=== PATIENT | female | born 1955 | race Caucasian/White ===

== ENCOUNTER 2017-06-23 12:16 | Inpatient (IN) ==
[2017-06-23 13:03] LABS: Apearance,Urine CLEAR (Clear); Bilirubin,Urine Negative (Negative); Blood, Urine Moderate mg/dL (Negative); Glucose,Urine (UA) >=500 mg/dL (Negative); Ketones,Urine Negative (Negative); Mucus,Urine Occasional /LPF (Occasional); Nitrite,Urine Negative (Negative); Protein,Urine Negative; RBC,Urine 1 /HPF (0-4); Squamous Epithelial Cell,Urine Occasional /HPF (0-10); Urine Specific Gravity 1.018 (1.001-1.035); Urine Urobilinogen < 2.0 EU/DL (0.2-1.0); WBC,Urine 6 /HPF (0-6)
[2017-06-23 13:05] LABS: Urine Color Amber (Yellow)
[2017-06-23] MEDS ORDERED: SODIUM CHLORIDE 0.9% 1,000 ML IV STA (14:15)
[2017-06-23] MEDS ORDERED: KETOROLAC 30 MG/1 ML VIAL IV STA (14:15)
[2017-06-23] MEDS ORDERED: ONDANSETRON 4 MG/2 ML VIAL IV STA (14:15)
[2017-06-23] MEDS ORDERED: ONDANSETRON 4 MG/2 ML VIAL ONE (14:32)
[2017-06-23] MEDS ORDERED: KETOROLAC 30 MG/1 ML VIAL ONE (14:32)
[2017-06-23 14:46] LABS: Basophils # 0.1 10*3/uL (0.0-0.2); Basophils % 0.5 % (0.0-0.8); Eosinophils # 0.1 10*3/uL (0.0-0.87); Eosinophils % 0.3 % (0.00-10.9); Hematocrit 33.9 VOL% (35.7-47.0); Hemoglobin 12.1 GM/DL (12.0-16.0); Immature Granulocytes % 1.3 %; Immature Granulocytes Absolute 0.22 #; Lymphocytes # 1.3 10*3/uL (1.4-4.0); Lymphocytes % 7.5 % (21.3-54.2); Mean Corpuscular HGB Conc 35.7 GM/DL (32-36); Mean Corpuscular Hemoglobin 29 PG (27-34); Mean Corpuscular Volume 82.5 FL (87-102); Monocytes # 1.1 10*3/uL (0.11-0.8); Monocytes % 6.6 % (1.7-12.7); Neutrophils # 13.9 10*3/uL (1.4-7.4); Neutrophils % 83.8 % (38.7-73.9); Platelet Count 74 T/CUMM (130-400); Red Blood Count 4.11 MC/CUMM (3.8-5.5); Red Cell Distribution Width 12.9 % (9.3-17.3); White Blood Count 16.6 T/CUMM (4-12)
[2017-06-23 15:06] LABS: Albumin 2.4 G/DL (3.4-5.0); Bilirubin,Total 0.7 MG/DL (0.2-1.0); Calcium 8.8 MG/DL (8.5-10.1); Osmolality,Calculated 294.7 MOS/KG (273-304); Potassium 3.9 MMOL/L (3.5-5.1); Total Protein 6.7 G/DL (6.4-8.3)
[2017-06-23 15:12] LABS: Band Neutrophils 23 % (0-10); Lymphocytes 7 % (20-55); Segmented Neutrophils 66 % (50-85); Total Cells Counted 100
[2017-06-23] MEDS ORDERED: ACETAMINOPHEN 325 MG TABLET PO PRN ×2 (15:50)
[2017-06-23] MEDS ORDERED: GLUCAGON 1 MG VIAL IM PRN (15:56)
[2017-06-23] MEDS ORDERED: DEXTROSE 50% 25 GM/50 ML VIAL IV PRN (15:56)
[2017-06-23] MEDS ORDERED: PANTOPRAZOLE 40 MG TABLET PO SCH (16:00)
[2017-06-23] MEDS ORDERED: ONDANSETRON 4 MG/2 ML VIAL IV PRN (16:04)
[2017-06-23] MEDS ORDERED: INSULIN NPH 100 UNIT/ML SUBCUT SCH (16:30)
[2017-06-23 16:39] LABS: INR 1.1; PT Patient Result 11.7 SECS; Partial Thromboplastin Time 28.2 SECS (0-40)
[2017-06-23] MEDS: LACTATED RINGERS 1,000 ML IV SCH (18:47)
[2017-06-23] MEDS: INSULIN REGULAR 100 UNIT/ML SUBCUT SCH ×2 (20:06→21:59)
[2017-06-23] MEDS: CIPROFLOXACIN INJ 400 MG in PREMIX 1 EACH IV SCH (21:46)
[2017-06-23] MEDS: CITALOPRAM 20 MG TABLET PO SCH (21:46)
[2017-06-23] MEDS: PANTOPRAZOLE 40 MG TABLET PO SCH (21:46)
[2017-06-23] MEDS: ATORVASTATIN 40 MG TABLET PO SCH (21:46)
[2017-06-23] MEDS: ENOXAPARIN 40 MG/0.4 ML SYRINGE SUBCUT SCH (21:54)
[2017-06-23] MEDS: ZALEPLON 5 MG CAPSULE PO PRN (21:59)
[2017-06-24] MEDS: LACTATED RINGERS 1,000 ML IV SCH ×2 (04:30→15:50)
[2017-06-24 06:59] LABS: Calcium 7.5 MG/DL (8.5-10.1); Osmolality,Calculated 285.1 MOS/KG (273-304); Potassium 3.4 MMOL/L (3.5-5.1)
[2017-06-24] MEDS: INSULIN NPH 100 UNIT/ML SUBCUT SCH ×2 (07:43→18:22)
[2017-06-24] MEDS: INSULIN REGULAR 100 UNIT/ML SUBCUT SCH ×4 (07:44→20:59)
[2017-06-24] MEDS: PANTOPRAZOLE 40 MG TABLET PO SCH (07:59)
[2017-06-24] MEDS: CITALOPRAM 20 MG TABLET PO SCH ×2 (07:59→20:56)
[2017-06-24] MEDS: CIPROFLOXACIN INJ 400 MG in PREMIX 1 EACH IV SCH ×2 (07:59→20:56)
[2017-06-24] MEDS: BENZONATATE 100 MG CAPSULE PO SCH ×3 (13:22→21:03)
[2017-06-24] MEDS: ZALEPLON 5 MG CAPSULE PO PRN (20:56)
[2017-06-24] MEDS: ENOXAPARIN 40 MG/0.4 ML SYRINGE SUBCUT SCH (20:56)
[2017-06-24] MEDS: ATORVASTATIN 40 MG TABLET PO SCH (20:56)
[2017-06-25 02:32] LABS: Basophils # 0.1 10*3/uL (0.0-0.2); Basophils % 0.5 % (0.0-0.8); Eosinophils # 0.1 10*3/uL (0.0-0.87); Eosinophils % 0.7 % (0.00-10.9); Hematocrit 30.7 VOL% (35.7-47.0); Hemoglobin 10.8 GM/DL (12.0-16.0); Immature Granulocytes % 2.7 %; Immature Granulocytes Absolute 0.28 #; Lymphocytes % 9.3 % (21.3-54.2); Mean Corpuscular HGB Conc 35.2 GM/DL (32-36); Mean Corpuscular Hemoglobin 29 PG (27-34); Mean Platelet Volume 11.6 FL (9.6-12.0); Monocytes # 1.4 10*3/uL (0.11-0.8); Monocytes % 13.9 % (1.7-12.7); NRBC # 0.02 10*3/uL; Neutrophils # 7.6 10*3/uL (1.4-7.4); Neutrophils % 72.9 % (38.7-73.9); White Blood Count 10.4 T/CUMM (4-12)
[2017-06-25 02:38] LABS: Platelet Count 71 T/CUMM (130-400)
[2017-06-25 03:22] LABS: Calcium 7.8 MG/DL (8.5-10.1); Osmolality,Calculated 290.7 MOS/KG (273-304); Potassium 3.2 MMOL/L (3.5-5.1)
[2017-06-25 04:14] LABS: Eosinophils 3 % (0-10); Lymphocytes 8 % (20-55); Metamyelocytes 1 %; Myelocytes 1 %; Nucleated Red Blood Cells 1 (0-5); Segmented Neutrophils 69 % (50-85)
[2017-06-25 04:15] LABS: Hypochromasia 1+; Platelet Estimate Decreased
[2017-06-25 04:16] LABS: Total Cells Counted 100
[2017-06-25 04:17] LABS: Polychromasia Few
[2017-06-25] MEDS: LACTATED RINGERS 1,000 ML IV SCH ×2 (06:32→17:08)
[2017-06-25] MEDS ORDERED: MAGNESIUM HYDROXIDE SUSP 30 ML UDCUP PO PRN (07:47)
[2017-06-25] MEDS: CITALOPRAM 20 MG TABLET PO SCH ×2 (08:42→20:59)
[2017-06-25] MEDS: POTASSIUM CHLORIDE 20 MEQ TABLET PO SCH ×4 (08:42→20:57)
[2017-06-25] MEDS: BENZONATATE 100 MG CAPSULE PO SCH ×3 (08:43→20:59)
[2017-06-25] MEDS: PANTOPRAZOLE 40 MG TABLET PO SCH (08:43)
[2017-06-25] MEDS: CIPROFLOXACIN INJ 400 MG in PREMIX 1 EACH IV SCH ×2 (08:43→20:59)
[2017-06-25] MEDS: INSULIN NPH 100 UNIT/ML SUBCUT SCH ×2 (08:43→16:46)
[2017-06-25] MEDS: INSULIN REGULAR 100 UNIT/ML SUBCUT SCH ×4 (08:43→21:26)
[2017-06-25] MEDS: ZALEPLON 5 MG CAPSULE PO PRN (20:59)
[2017-06-25] MEDS: ATORVASTATIN 40 MG TABLET PO SCH (20:59)
[2017-06-25] MEDS: ENOXAPARIN 40 MG/0.4 ML SYRINGE SUBCUT SCH (21:00)
[2017-06-26 06:02] LABS: Calcium 8.3 MG/DL (8.5-10.1); Magnesium 1.8 MG/DL (1.8-2.4); Osmolality,Calculated 280.5 MOS/KG (273-304); Potassium 4.5 MMOL/L (3.5-5.1)
[2017-06-26] MEDS: INSULIN REGULAR 100 UNIT/ML SUBCUT SCH ×4 (08:27→20:59)
[2017-06-26] MEDS: LACTATED RINGERS 1,000 ML IV SCH (08:34)
[2017-06-26] MEDS: PANTOPRAZOLE 40 MG TABLET PO SCH (09:07)
[2017-06-26] MEDS: BENZONATATE 100 MG CAPSULE PO SCH ×4 (09:07→20:58)
[2017-06-26] MEDS: CITALOPRAM 20 MG TABLET PO SCH ×2 (09:07→20:58)
[2017-06-26] MEDS: CIPROFLOXACIN 500 MG TABLET PO SCH ×2 (09:07→20:58)
[2017-06-26] MEDS: INSULIN NPH 100 UNIT/ML SUBCUT SCH ×2 (09:07→15:40)
[2017-06-26] MEDS: ENOXAPARIN 40 MG/0.4 ML SYRINGE SUBCUT SCH (20:58)
[2017-06-26] MEDS: ATORVASTATIN 40 MG TABLET PO SCH (20:58)
[2017-06-26] MEDS: ZALEPLON 5 MG CAPSULE PO PRN (20:58)
[2017-06-27] MEDS: BENZONATATE 100 MG CAPSULE PO SCH ×2 (11:54→15:01)
[2017-06-27] MEDS: CITALOPRAM 20 MG TABLET PO SCH ×2 (11:54→20:58)
[2017-06-27] MEDS: CIPROFLOXACIN 500 MG TABLET PO SCH ×2 (11:55→20:59)
[2017-06-27] MEDS: PANTOPRAZOLE 40 MG TABLET PO SCH (11:55)
[2017-06-27] MEDS: INSULIN REGULAR 100 UNIT/ML SUBCUT SCH ×4 (13:22→20:59)
[2017-06-27] MEDS: INSULIN NPH 100 UNIT/ML SUBCUT SCH ×2 (13:25→18:12)
[2017-06-27 17:54] LABS: INR 1.1; PT Patient Result 11.8 SECS; Partial Thromboplastin Time 27.5 SECS (0-40)
[2017-06-27] MEDS: DILTIAZEM CD 120 MG CAPSULE PO SCH (18:13)
[2017-06-27] MEDS: ATORVASTATIN 40 MG TABLET PO SCH (20:59)
[2017-06-28 06:02] LABS: Basophils # 0.1 10*3/uL (0.0-0.2); Basophils % 0.5 % (0.0-0.8); Eosinophils # 0.2 10*3/uL (0.0-0.87); Eosinophils % 1.1 % (0.00-10.9); Hematocrit 37.1 VOL% (35.7-47.0); Hemoglobin 12.5 GM/DL (12.0-16.0); Immature Granulocytes % 1.4 %; Immature Granulocytes Absolute 0.24 #; Lymphocytes # 1.4 10*3/uL (1.4-4.0); Lymphocytes % 7.9 % (21.3-54.2); Mean Corpuscular HGB Conc 33.7 GM/DL (32-36); Mean Corpuscular Hemoglobin 29 PG (27-34); Mean Corpuscular Volume 85.7 FL (87-102); Mean Platelet Volume 10.4 FL (9.6-12.0); Monocytes # 1.1 10*3/uL (0.11-0.8); Monocytes % 6.1 % (1.7-12.7); Neutrophils # 14.4 10*3/uL (1.4-7.4); Platelet Count 268 T/CUMM (130-400); Red Blood Count 4.33 MC/CUMM (3.8-5.5); White Blood Count 17.4 T/CUMM (4-12)
[2017-06-28 06:34] LABS: Osmolality,Calculated 280.7 MOS/KG (273-304); Potassium 4.7 MMOL/L (3.5-5.1)
[2017-06-28] MEDS: CITALOPRAM 20 MG TABLET PO SCH (09:37)
[2017-06-28] MEDS: DILTIAZEM CD 120 MG CAPSULE PO SCH (09:37)
[2017-06-28] MEDS: CIPROFLOXACIN 500 MG TABLET PO SCH (09:38)
[2017-06-28] MEDS: PANTOPRAZOLE 40 MG TABLET PO SCH (09:38)
[2017-06-28] MEDS: INSULIN NPH 100 UNIT/ML SUBCUT SCH (09:40)
[2017-06-28] MEDS: INSULIN REGULAR 100 UNIT/ML SUBCUT SCH (09:41)
[2017-06-28 11:19] VITALS: BP 118/69
== END 2017-06-28 12:30 | disposition home or self-care (01) | DRG 690 ==
LOC: N.ED 12:16 → N.EDINP 15:50 → SUATTDRO 15:50 → N.2E 18:00
PROVIDERS: ADMIT Internal Medicine Cardiovascular Disease; ATTEND Internal Medicine

== ENCOUNTER 2019-11-27 21:41 | Inpatient (IN) ==
[2019-11-27] MEDS ORDERED: methylPREDNISolone SOD SUC 125 MG/2 ML VIAL IV STA (22:17)
[2019-11-27] MEDS ORDERED: ONDANSETRON 4 MG/2 ML VIAL IV STA (22:17)
[2019-11-27] MEDS ORDERED: KETOROLAC 30 MG/1 ML VIAL IV STA (22:20)
[2019-11-27] MEDS ORDERED: ORPHENADRINE 60 MG/2 ML VIAL IV STA (22:20)
[2019-11-27] MEDS ORDERED: ALBUTEROL NEB SOLN 5 MG/ML 20 ML/BOTTLE CONT NEB SCH (22:30)
[2019-11-27 22:39] LABS: Basophils # 0.1 10*3/uL (0.0-0.2); Basophils % 0.2 % (0.0-0.8); Hematocrit 42.9 VOL% (35.7-47.0); Hemoglobin 14.1 GM/DL (12.0-16.0); Immature Granulocytes % 1.5 %; Immature Granulocytes Absolute 0.36 #; Lymphocytes # 1.5 10*3/uL (1.4-4.0); Lymphocytes % 6.3 % (21.3-54.2); Mean Corpuscular HGB Conc 32.9 GM/DL (32-36); Mean Corpuscular Volume 97.3 FL (87-102); Mean Platelet Volume 11.7 FL (9.6-12.0); Monocytes % 7.9 % (1.7-12.7); Neutrophils % 84.1 % (38.7-73.9); Platelet Count 198 T/CUMM (130-400); Red Blood Count 4.41 MC/CUMM (3.8-5.5); Red Cell Distribution Width 12.7 % (9.3-17.3)
[2019-11-27 22:46] LABS: Alanine Aminotransferase 43 U/L (13-56); Albumin 2.7 G/DL (3.4-5.0); Alkaline Phosphatase 74 U/L (45-117); Aspartate Amino Transferase 49 U/L (0-37); Blood Urea Nitrogen 19 MG/DL (7-18); Calcium 8.6 MG/DL (8.5-10.1); Estimated Glom Filtration Rate 53 ML/MIN; Glucose 426 MG/DL (74-106); Osmolality,Calculated 294.7 MOS/KG (273-304); Total Protein 6.7 G/DL (6.4-8.3); Troponin I 0.185 NG/ML (0.00-0.045)
[2019-11-27 22:55] LABS: INR 1.1; PT Patient Result 11.7 SECS (9.6-12.2); Partial Thromboplastin Time 22.2 SECS (20.8-36.0)
[2019-11-27] MEDS ORDERED: cefTRIAXone 1,000 MG in SODIUM CHLORIDE 0.9% 100 ML IV STA (22:56)
[2019-11-27] MEDS ORDERED: INSULIN REGULAR 100 UNIT/ML SUBCUT STA (23:03)
[2019-11-27] MEDS ORDERED: ZALEPLON 5 MG CAPSULE PO PRN (23:09)
[2019-11-27] MEDS ORDERED: DEXTROSE 50% 25 GM/50 ML SYRINGE IV PRN (23:09)
[2019-11-27] MEDS ORDERED: ONDANSETRON 4 MG/2 ML VIAL IV PRN (23:09)
[2019-11-27] MEDS ORDERED: DOCUSATE SODIUM 100 MG CAPSULE PO PRN (23:09)
[2019-11-27] MEDS ORDERED: GLUCAGON 1 MG VIAL IM PRN (23:09)
[2019-11-27] MEDS ORDERED: SIMETHICONE CHEW 125 MG TABLET PO PRN (23:09)
[2019-11-27] MEDS ORDERED: ALBUTEROL 2.5 MG/3 ML NEB RESP TX PRN (23:09)
[2019-11-27 23:24] LABS: Apearance,Urine CLEAR (Clear); Bilirubin,Urine Negative (Negative); Blood, Urine Negative (Negative); Glucose,Urine (UA) >=500 mg/dL (Negative); Hyaline Casts,Urine 1 /LPF (0-3); Ketones,Urine 5 mg/dL (Negative); Mucus,Urine Occasional /LPF (Occasional); Nitrite,Urine Negative (Negative); Protein,Urine Negative; RBC,Urine 1 /HPF (0-4); Urine Color Yellow (Yellow); Urine Specific Gravity 1.028 (1.001-1.035); Urine Urobilinogen < 2.0 EU/DL (0.2-1.0); WBC,Urine 1 /HPF (0-6)
[2019-11-27 23:30] LABS: Barbiturates Screen,Urine Negative (Negative); Benzodiazepines Screen,Urine Negative (Negative); Cannabinoid Screen,Urine Negative (Negative); Opiate Screen,Urine Negative (Negative); Phencyclidine Screen,Urine Negative (Negative)
[2019-11-28 00:27] LABS: Band Neutrophils 4 % (0-10); Lymphocytes 8 % (20-55); Segmented Neutrophils 83 % (50-85); Total Cells Counted 100
[2019-11-28 00:28] LABS: Platelet Estimate Normal
[2019-11-28] MEDS ORDERED: ALBUTEROL 2.5 MG/3 ML NEB RESP TX PRN (01:00)
[2019-11-28] MEDS: LEVALBUTEROL 1.25 MG/3 ML NEB RESP TX SCH ×4 (01:47→19:08)
[2019-11-28 03:19] LABS: Basophils % 0.1 % (0.0-0.8); Hematocrit 39.4 VOL% (35.7-47.0); Hemoglobin 13.2 GM/DL (12.0-16.0); Immature Granulocytes % 0.5 %; Immature Granulocytes Absolute 0.08 #; Lymphocytes # 0.6 10*3/uL (1.4-4.0); Mean Corpuscular HGB Conc 33.5 GM/DL (32-36); Mean Corpuscular Volume 95.2 FL (87-102); Mean Platelet Volume 10.8 FL (9.6-12.0); Monocytes % 4.3 % (1.7-12.7); Neutrophils % 91.1 % (38.7-73.9); Platelet Count 140 T/CUMM (130-400); Red Blood Count 4.14 MC/CUMM (3.8-5.5); Red Cell Distribution Width 12.9 % (9.3-17.3)
[2019-11-28 03:37] LABS: Albumin 2.6 G/DL (3.4-5.0); Bilirubin,Total 0.6 MG/DL (0.2-1.0); Calcium 8.4 MG/DL (8.5-10.1); Osmolality,Calculated 292.1 MOS/KG (273-304); Total Protein 6.2 G/DL (6.4-8.3)
[2019-11-28] MEDS: INSULIN REGULAR 100 UNIT/ML SUBCUT SCH ×5 (06:32→21:23)
[2019-11-28] MEDS: ENOXAPARIN 40 MG/0.4 ML SYRINGE SUBCUT SCH (06:37)
[2019-11-28] MEDS: PIPERACILLIN/TAZOBACTAM 3,375 MG in SODIUM CHLORIDE 0.9% 100 ML IV SCH ×3 (06:38→21:23)
[2019-11-28] MEDS: methylPREDNISolone SOD SUC 40 MG/1 ML VIAL IV SCH ×3 (06:38→21:23)
[2019-11-28] MEDS: PANTOPRAZOLE 40 MG TABLET PO SCH (08:22)
[2019-11-28] MEDS: DILTIAZEM CD 120 MG CAPSULE PO SCH (09:27)
[2019-11-28] MEDS: carvediloL 3.125 MG TABLET PO SCH ×2 (09:27→17:03)
[2019-11-28] MEDS ORDERED: POTASSIUM CHLORIDE RIDER 10 MEQ in PREMIX 1 EACH IV PRN (10:59)
[2019-11-28] MEDS ORDERED: FLUTICASONE 50 MCG NASAL SPRAY 16 GM BOTTLE BOTH NARES PRN (11:10)
[2019-11-28] MEDS ORDERED: BENZONATATE 100 MG CAPSULE PO PRN (11:18)
[2019-11-28] MEDS: INSULIN NPH/REGULAR 70/30 100 UNIT/ML SUBCUT SCH (17:02)
[2019-11-28] MEDS ORDERED: NINTEDANIB 100 MG PO SCH (21:00)
[2019-11-28] MEDS ORDERED: SULFAMETHOX/TRIMETHOPRIM 800-160 MG TABLET PO SCH (21:00)
[2019-11-28] MEDS: ATORVASTATIN 40 MG TABLET PO SCH (21:24)
[2019-11-29] MEDS: LEVALBUTEROL 1.25 MG/3 ML NEB RESP TX SCH ×4 (01:32→19:45)
[2019-11-29 04:52] LABS: Basophils % 0.1 % (0.0-0.8); Hematocrit 34.7 VOL% (35.7-47.0); Hemoglobin 11.8 GM/DL (12.0-16.0); Immature Granulocytes % 0.4 %; Immature Granulocytes Absolute 0.07 #; Lymphocytes # 0.4 10*3/uL (1.4-4.0); Lymphocytes % 2.5 % (21.3-54.2); Mean Platelet Volume 11.7 FL (9.6-12.0); Monocytes % 4.7 % (1.7-12.7); Neutrophils % 92.3 % (38.7-73.9); Platelet Count 127 T/CUMM (130-400); Red Blood Count 3.69 MC/CUMM (3.8-5.5); Red Cell Distribution Width 12.9 % (9.3-17.3); White Blood Count 15.8 T/CUMM (4-12)
[2019-11-29 05:17] LABS: Calcium 8.1 MG/DL (8.5-10.1); Osmolality,Calculated 295.3 MOS/KG (273-304)
[2019-11-29 05:21] LABS: Hypochromasia 1+; Lymphocytes 4 % (20-55); Platelet Estimate Normal; Segmented Neutrophils 93 % (50-85); Total Cells Counted 100
[2019-11-29] MEDS: methylPREDNISolone SOD SUC 40 MG/1 ML VIAL IV SCH (05:59)
[2019-11-29] MEDS: ENOXAPARIN 40 MG/0.4 ML SYRINGE SUBCUT SCH (05:59)
[2019-11-29] MEDS: PIPERACILLIN/TAZOBACTAM 3,375 MG in SODIUM CHLORIDE 0.9% 100 ML IV SCH ×2 (05:59→15:10)
[2019-11-29] MEDS: INSULIN REGULAR 100 UNIT/ML SUBCUT SCH ×4 (08:34→23:54)
[2019-11-29] MEDS: INSULIN NPH/REGULAR 70/30 100 UNIT/ML SUBCUT SCH ×2 (08:34→15:59)
[2019-11-29] MEDS: carvediloL 3.125 MG TABLET PO SCH ×2 (08:35→15:59)
[2019-11-29] MEDS: DILTIAZEM CD 120 MG CAPSULE PO SCH (08:35)
[2019-11-29] MEDS: CITALOPRAM 20 MG TABLET PO SCH (08:35)
[2019-11-29] MEDS: PANTOPRAZOLE 40 MG TABLET PO SCH (08:35)
[2019-11-29] MEDS: ACETAMINOPHEN 325 MG TABLET PO PRN ×2 (09:30→20:57)
[2019-11-29] MEDS: POTASSIUM CHLORIDE 20 MEQ TABLET PO PRN ×3 (09:31→15:59)
[2019-11-29] MEDS: CLORAZEPATE 3.75 MG TABLET PO SCH ×2 (10:15→20:57)
[2019-11-29] MEDS ORDERED: methylPREDNISolone SOD SUC 40 MG/1 ML VIAL IV SCH (18:00)
[2019-11-29] MEDS: methylPREDNISolone 4 MG TABLET PO SCH (20:57)
[2019-11-29] MEDS: ATORVASTATIN 40 MG TABLET PO SCH (20:58)
[2019-11-30] MEDS: PIPERACILLIN/TAZOBACTAM 3,375 MG in SODIUM CHLORIDE 0.9% 100 ML IV SCH ×3 (00:21→14:44)
[2019-11-30] MEDS: ACETAMINOPHEN 325 MG TABLET PO PRN ×3 (01:01→20:56)
[2019-11-30] MEDS: LEVALBUTEROL 1.25 MG/3 ML NEB RESP TX SCH ×4 (01:03→20:20)
[2019-11-30] MEDS: ENOXAPARIN 40 MG/0.4 ML SYRINGE SUBCUT SCH (05:26)
[2019-11-30 05:28] LABS: Basophils % 0.1 % (0.0-0.8); Hematocrit 33.8 VOL% (35.7-47.0); Hemoglobin 11.2 GM/DL (12.0-16.0); Immature Granulocytes % 0.6 %; Immature Granulocytes Absolute 0.09 #; Lymphocytes # 0.6 10*3/uL (1.4-4.0); Lymphocytes % 3.8 % (21.3-54.2); Mean Corpuscular HGB Conc 33.1 GM/DL (32-36); Mean Corpuscular Volume 96.8 FL (87-102); Mean Platelet Volume 12.2 FL (9.6-12.0); Monocytes % 7.7 % (1.7-12.7); Neutrophils % 87.8 % (38.7-73.9); Platelet Count 127 T/CUMM (130-400); Red Blood Count 3.49 MC/CUMM (3.8-5.5); Red Cell Distribution Width 13.1 % (9.3-17.3); White Blood Count 14.8 T/CUMM (4-12)
[2019-11-30 05:55] LABS: Calcium 7.9 MG/DL (8.5-10.1); Osmolality,Calculated 297.3 MOS/KG (273-304)
[2019-11-30 06:00] LABS: Band Neutrophils 2 % (0-10); Hypochromasia 1+; Lymphocytes 3 % (20-55); Platelet Estimate Adequate; Segmented Neutrophils 90 % (50-85); Total Cells Counted 100
[2019-11-30] MEDS: DILTIAZEM CD 120 MG CAPSULE PO SCH (09:24)
[2019-11-30] MEDS: INSULIN REGULAR 100 UNIT/ML SUBCUT SCH ×4 (09:25→20:34)
[2019-11-30] MEDS: CITALOPRAM 20 MG TABLET PO SCH (09:25)
[2019-11-30] MEDS: PANTOPRAZOLE 40 MG TABLET PO SCH (09:25)
[2019-11-30] MEDS: CLORAZEPATE 3.75 MG TABLET PO SCH ×2 (09:25→20:35)
[2019-11-30] MEDS: methylPREDNISolone 4 MG TABLET PO SCH ×2 (09:25→20:35)
[2019-11-30] MEDS: carvediloL 3.125 MG TABLET PO SCH ×2 (09:25→16:08)
[2019-11-30] MEDS: INSULIN NPH/REGULAR 70/30 100 UNIT/ML SUBCUT SCH ×2 (09:25→16:08)
[2019-11-30] MEDS: LOPERAMIDE 2 MG CAPSULE PO PRN (09:28)
[2019-11-30] MEDS: ATORVASTATIN 40 MG TABLET PO SCH (20:35)
[2019-12-01] MEDS: PIPERACILLIN/TAZOBACTAM 3,375 MG in SODIUM CHLORIDE 0.9% 100 ML IV SCH ×2 (00:22→05:33)
[2019-12-01] MEDS: LEVALBUTEROL 1.25 MG/3 ML NEB RESP TX SCH ×3 (01:50→13:08)
[2019-12-01 04:12] LABS: Basophils % 0.1 % (0.0-0.8); Eosinophils % 0.1 % (0.00-10.9); Hematocrit 36.4 VOL% (35.7-47.0); Hemoglobin 11.7 GM/DL (12.0-16.0); Immature Granulocytes % 0.6 %; Immature Granulocytes Absolute 0.07 #; Lymphocytes # 0.9 10*3/uL (1.4-4.0); Lymphocytes % 7.4 % (21.3-54.2); Mean Corpuscular HGB Conc 32.1 GM/DL (32-36); Mean Corpuscular Volume 99.5 FL (87-102); Mean Platelet Volume 11.4 FL (9.6-12.0); Monocytes % 6.5 % (1.7-12.7); Neutrophils % 85.3 % (38.7-73.9); Platelet Count 136 T/CUMM (130-400); Red Blood Count 3.66 MC/CUMM (3.8-5.5); Red Cell Distribution Width 13.1 % (9.3-17.3); White Blood Count 11.4 T/CUMM (4-12)
[2019-12-01 04:36] LABS: Calcium 7.9 MG/DL (8.5-10.1); Osmolality,Calculated 283.3 MOS/KG (273-304)
[2019-12-01] MEDS: ENOXAPARIN 40 MG/0.4 ML SYRINGE SUBCUT SCH (05:34)
[2019-12-01] MEDS: PANTOPRAZOLE 40 MG TABLET PO SCH (09:24)
[2019-12-01] MEDS: carvediloL 3.125 MG TABLET PO SCH (09:24)
[2019-12-01] MEDS: CLORAZEPATE 3.75 MG TABLET PO SCH (09:24)
[2019-12-01] MEDS: methylPREDNISolone 4 MG TABLET PO SCH (09:24)
[2019-12-01] MEDS: LOPERAMIDE 2 MG CAPSULE PO PRN (09:24)
[2019-12-01] MEDS: CITALOPRAM 20 MG TABLET PO SCH (09:24)
[2019-12-01] MEDS: DILTIAZEM CD 120 MG CAPSULE PO SCH (09:24)
[2019-12-01] MEDS: INSULIN NPH/REGULAR 70/30 100 UNIT/ML SUBCUT SCH (09:25)
[2019-12-01] MEDS: INSULIN REGULAR 100 UNIT/ML SUBCUT SCH ×2 (09:25→13:13)
[2019-12-01] MEDS: ACETAMINOPHEN 325 MG TABLET PO PRN (09:33)
[2019-12-01 11:49] VITALS: BP 116/82
== END 2019-12-01 15:07 | disposition home health service (06) | DRG 196 ==
LOC: EDBD → EDUNIT# → N.ED 21:41 → N.EDINP 23:09 → SUATTDRO 23:09 → N.ICU 23:35 → N.3E 11-29 16:47
PROVIDERS: ADMIT Internal Medicine; ATTEND Family Medicine

== ENCOUNTER 2019-12-17 12:00 | Observation (INO) ==
[2019-12-17] MEDS ORDERED: ONDANSETRON 4 MG/2 ML VIAL IV STA (12:55)
[2019-12-17] MEDS ORDERED: HYDROmorphone 2 MG/1 ML VIAL IV STA (12:55)
[2019-12-17 13:49] LABS: Apearance,Urine Slightly Hazy (Clear); Bacteria,Urine Occasional /HPF (Few); Bilirubin,Urine Negative (Negative); Blood, Urine Negative (Negative); Glucose,Urine (UA) >=500 mg/dL (Negative); Hyaline Casts,Urine 1 /LPF (0-3); Ketones,Urine Negative (Negative); Mucus,Urine Occasional /LPF (Occasional); Nitrite,Urine Negative (Negative); Protein,Urine Negative; RBC,Urine 4 /HPF (0-4); Squamous Epithelial Cell,Urine Few /HPF (0-10); Urine Color Yellow (Yellow); Urine Specific Gravity 1.021 (1.001-1.035); Urine Urobilinogen < 2.0 EU/DL (0.2-1.0); WBC,Urine 49 /HPF (0-6)
[2019-12-17] MEDS ORDERED: cefTRIAXone 1,000 MG in SODIUM CHLORIDE 0.9% 100 ML IV STA (15:00)
[2019-12-17] MEDS ORDERED: FLUTICASONE 50 MCG NASAL SPRAY 16 GM BOTTLE BOTH NARES PRN (16:03)
[2019-12-17] MEDS ORDERED: BENZONATATE 100 MG CAPSULE PO PRN (16:03)
[2019-12-17] MEDS ORDERED: LOPERAMIDE 2 MG CAPSULE PO PRN (16:03)
[2019-12-17] MEDS ORDERED: DEXTROSE 50% 25 GM/50 ML VIAL IV PRN ×2 (16:06)
[2019-12-17] MEDS ORDERED: CALCIUM CARBONATE CHEW 500 MG TABLET PO PRN (16:06)
[2019-12-17] MEDS ORDERED: LACTULOSE 20 GM/30 ML UDCUP PO PRN (16:06)
[2019-12-17] MEDS ORDERED: GLUCAGON 1 MG VIAL IM PRN (16:06)
[2019-12-17] MEDS ORDERED: ALUMINUM/MAGNES/SIMETH MAX STR 30 ML UDCUP PO PRN (16:06)
[2019-12-17] MEDS ORDERED: DOCUSATE SODIUM 100 MG CAPSULE PO PRN (16:06)
[2019-12-17] MEDS ORDERED: SIMETHICONE CHEW 125 MG TABLET PO PRN (16:06)
[2019-12-17] MEDS ORDERED: BISACODYL 5 MG TABLET PO PRN (16:06)
[2019-12-17 18:39] LABS: Basophils % 0.1 % (0.0-0.8); Hematocrit 41.5 VOL% (35.7-47.0); Hemoglobin 13.2 GM/DL (12.0-16.0); Immature Granulocytes % 0.4 %; Immature Granulocytes Absolute 0.06 #; Lymphocytes # 1.8 10*3/uL (1.4-4.0); Lymphocytes % 12.6 % (21.3-54.2); Mean Corpuscular HGB Conc 31.8 GM/DL (32-36); Mean Corpuscular Volume 99.8 FL (87-102); Mean Platelet Volume 10.1 FL (9.6-12.0); Monocytes % 6.1 % (1.7-12.7); Neutrophils % 80.8 % (38.7-73.9); Platelet Count 279 T/CUMM (130-400); Red Blood Count 4.16 MC/CUMM (3.8-5.5); Red Cell Distribution Width 13.4 % (9.3-17.3)
[2019-12-17 19:05] LABS: Albumin 2.8 G/DL (3.4-5.0); Bilirubin,Total 0.5 MG/DL (0.2-1.0); Calcium 8.9 MG/DL (8.5-10.1); Osmolality,Calculated 281.7 MOS/KG (273-304); Total Protein 7.1 G/DL (6.4-8.3)
[2019-12-17] MEDS ORDERED: NINTEDANIB 100 MG PO SCH (21:00)
[2019-12-17] MEDS: INSULIN REGULAR 100 UNIT/ML SUBCUT SCH (21:09)
[2019-12-17] MEDS: CLINDAMYCIN 150 MG CAPSULE PO SCH (21:09)
[2019-12-17] MEDS: cephALEXin 250 MG CAPSULE PO SCH (21:09)
[2019-12-17] MEDS: INSULIN NPH/REGULAR 70/30 100 UNIT/ML SUBCUT SCH (21:10)
[2019-12-18] MEDS: cephALEXin 250 MG CAPSULE PO SCH ×5 (00:17→20:27)
[2019-12-18] MEDS: methylPREDNISolone 4 MG TABLET PO SCH ×3 (00:18→20:28)
[2019-12-18] MEDS: CLINDAMYCIN 150 MG CAPSULE PO SCH ×4 (00:18→20:28)
[2019-12-18] MEDS: ATORVASTATIN 40 MG TABLET PO SCH ×2 (00:18→20:27)
[2019-12-18] MEDS: carvediloL 6.25 MG TABLET PO SCH ×3 (00:18→20:28)
[2019-12-18] MEDS: INSULIN REGULAR 100 UNIT/ML SUBCUT SCH ×5 (00:22→20:27)
[2019-12-18] MEDS: MORPHINE 4 MG/1 ML VIAL IV PRN ×2 (02:31→08:04)
[2019-12-18 06:36] LABS: Basophils % 0.3 % (0.0-0.8); Eosinophils % 0.2 % (0.00-10.9); Hematocrit 40.5 VOL% (35.7-47.0); Hemoglobin 13.2 GM/DL (12.0-16.0); Immature Granulocytes % 0.4 %; Immature Granulocytes Absolute 0.05 #; Lymphocytes # 0.9 10*3/uL (1.4-4.0); Lymphocytes % 7.8 % (21.3-54.2); Mean Corpuscular HGB Conc 32.6 GM/DL (32-36); Mean Corpuscular Volume 97.1 FL (87-102); Mean Platelet Volume 11.4 FL (9.6-12.0); Monocytes % 4.4 % (1.7-12.7); Neutrophils % 86.9 % (38.7-73.9); Platelet Count 200 T/CUMM (130-400); Red Blood Count 4.17 MC/CUMM (3.8-5.5); Red Cell Distribution Width 13.4 % (9.3-17.3); White Blood Count 11.8 T/CUMM (4-12)
[2019-12-18 06:58] LABS: Albumin 2.5 G/DL (3.4-5.0); Bilirubin,Total 0.7 MG/DL (0.2-1.0); Calcium 8.8 MG/DL (8.5-10.1); Osmolality,Calculated 276.8 MOS/KG (273-304); Total Protein 6.8 G/DL (6.4-8.3)
[2019-12-18] MEDS: ONDANSETRON 4 MG TABLET PO PRN (08:08)
[2019-12-18] MEDS: CITALOPRAM 20 MG TABLET PO SCH (08:55)
[2019-12-18] MEDS: INSULIN NPH/REGULAR 70/30 100 UNIT/ML SUBCUT SCH ×2 (08:56→17:13)
[2019-12-18] MEDS: PANTOPRAZOLE 40 MG TABLET PO SCH (08:56)
[2019-12-18] MEDS: DILTIAZEM CD 120 MG CAPSULE PO SCH (08:56)
[2019-12-18 10:20] LABS: Apearance,Urine CLEAR (Clear); Bilirubin,Urine Negative (Negative); Blood, Urine Negative (Negative); Glucose,Urine (UA) >=500 mg/dL (Negative); Hyaline Casts,Urine 1 /LPF (0-3); Ketones,Urine Negative (Negative); Mucus,Urine Occasional /LPF (Occasional); Nitrite,Urine Negative (Negative); Protein,Urine Negative; RBC,Urine 1 /HPF (0-4); Squamous Epithelial Cell,Urine Occasional /HPF (0-10); Urine Color Yellow (Yellow); Urine Specific Gravity 1.014 (1.001-1.035); Urine Urobilinogen < 2.0 EU/DL (0.2-1.0); WBC,Urine 1 /HPF (0-6)
[2019-12-18] MEDS: oxyCODONE/ACETAMINOPHEN 5-325 MG TABLET PO PRN (12:55)
[2019-12-18] MEDS: GABAPENTIN 100 MG CAPSULE PO SCH ×2 (14:40→20:28)
[2019-12-18] MEDS ORDERED: ZOLPIDEM 5 MG TABLET PO PRN (15:57)
[2019-12-19 06:14] LABS: Basophils % 0.2 % (0.0-0.8); Eosinophils % 0.1 % (0.00-10.9); Hematocrit 38.5 VOL% (35.7-47.0); Hemoglobin 12.5 GM/DL (12.0-16.0); Immature Granulocytes % 0.4 %; Immature Granulocytes Absolute 0.04 #; Lymphocytes # 1.6 10*3/uL (1.4-4.0); Lymphocytes % 16.1 % (21.3-54.2); Mean Corpuscular HGB Conc 32.5 GM/DL (32-36); Mean Corpuscular Volume 98.2 FL (87-102); Mean Platelet Volume 10.8 FL (9.6-12.0); Monocytes % 8.1 % (1.7-12.7); Neutrophils % 75.1 % (38.7-73.9); Platelet Count 263 T/CUMM (130-400); Red Blood Count 3.92 MC/CUMM (3.8-5.5); Red Cell Distribution Width 13.2 % (9.3-17.3); White Blood Count 9.8 T/CUMM (4-12)
[2019-12-19 06:39] LABS: Albumin 2.6 G/DL (3.4-5.0); Bilirubin,Total 0.7 MG/DL (0.2-1.0); Calcium 8.9 MG/DL (8.5-10.1); Osmolality,Calculated 280.5 MOS/KG (273-304); Total Protein 6.5 G/DL (6.4-8.3)
[2019-12-19] MEDS: INSULIN REGULAR 100 UNIT/ML SUBCUT SCH ×2 (07:30→12:14)
[2019-12-19] MEDS: INSULIN NPH/REGULAR 70/30 100 UNIT/ML SUBCUT SCH (09:10)
[2019-12-19] MEDS: ONDANSETRON 4 MG TABLET PO PRN (09:10)
[2019-12-19] MEDS: DILTIAZEM CD 120 MG CAPSULE PO SCH (09:49)
[2019-12-19] MEDS: methylPREDNISolone 4 MG TABLET PO SCH (09:49)
[2019-12-19] MEDS: CITALOPRAM 20 MG TABLET PO SCH (09:49)
[2019-12-19] MEDS: carvediloL 6.25 MG TABLET PO SCH (09:49)
[2019-12-19] MEDS: PANTOPRAZOLE 40 MG TABLET PO SCH (09:49)
[2019-12-19] MEDS: GABAPENTIN 100 MG CAPSULE PO SCH (09:49)
[2019-12-19] MEDS: cephALEXin 250 MG CAPSULE PO SCH ×2 (09:49→13:12)
[2019-12-19] MEDS: CLINDAMYCIN 150 MG CAPSULE PO SCH (09:49)
[2019-12-19] MEDS: oxyCODONE/ACETAMINOPHEN 5-325 MG TABLET PO PRN (11:32)
[2019-12-19 11:43] VITALS: BP 111/65
== END 2019-12-19 13:11 | disposition home or self-care (01) ==
LOC: N.ED 12:00 → N.EDINP 12:00 → SUATTDRO 16:06 → N.3E 17:10
PROVIDERS: ADMIT Internal Medicine; ATTEND Internal Medicine

== ENCOUNTER 2020-01-14 06:49 | Inpatient (IN) ==
[2020-01-14] MEDS ORDERED: MORPHINE 4 MG/1 ML VIAL IV STA (07:07)
[2020-01-14] MEDS ORDERED: ONDANSETRON 4 MG/2 ML VIAL IV STA (07:07)
[2020-01-14] MEDS ORDERED: PIPERACILLIN/TAZOBACTAM 3,375 MG in SODIUM CHLORIDE 0.9% 100 ML IV STA (07:20)
[2020-01-14] MEDS ORDERED: FUROSEMIDE 40 MG/4 ML VIAL IV STA (07:20)
[2020-01-14 07:28] LABS: ABG Base Excess -7.7 MMOL/L (-2.5-2.5); ABG HCO3 17.4 MMOL/L (20-26); ABG Oxygen Saturation 49.1 % (95-100); ABG PCO2 34.2 MM HG (35-48); ABG PH 7.325 (7.35-7.45); ABG TCO2 18.5 MMOL/L (23-27)
[2020-01-14] MEDS ORDERED: ETOMIDATE 20 MG/10 ML VIAL IV ONE (07:29)
[2020-01-14] MEDS ORDERED: methylPREDNISolone SOD SUC 125 MG/2 ML VIAL IV STA (07:30)
[2020-01-14] MEDS ORDERED: ETOMIDATE 20 MG/10 ML VIAL IV STA (07:30)
[2020-01-14] MEDS ORDERED: SUCCINYLCHOLINE 200 MG/10 ML VIAL ONE (07:30)
[2020-01-14] MEDS ORDERED: SUCCINYLCHOLINE 200 MG/10 ML VIAL IV ONE (07:31)
[2020-01-14 07:32] LABS: ABG PO2 29.3 MM HG (80-95)
[2020-01-14 07:55] LABS: Basophils % 0.2 % (0.0-0.8); Hemoglobin 12.2 GM/DL (12.0-16.0); Immature Granulocytes % 0.6 %; Immature Granulocytes Absolute 0.09 #; Lymphocytes # 0.9 10*3/uL (1.4-4.0); Lymphocytes % 6.1 % (21.3-54.2); Mean Corpuscular HGB Conc 32.1 GM/DL (32-36); Mean Corpuscular Volume 101.9 FL (87-102); Mean Platelet Volume 10.9 FL (9.6-12.0); Monocytes % 5.7 % (1.7-12.7); Neutrophils % 87.4 % (38.7-73.9); Platelet Count 181 T/CUMM (130-400); Red Blood Count 3.73 MC/CUMM (3.8-5.5); Red Cell Distribution Width 13.7 % (9.3-17.3); White Blood Count 15.2 T/CUMM (4-12)
[2020-01-14 08:15] LABS: Albumin 2.4 G/DL (3.4-5.0); Bilirubin,Total 0.8 MG/DL (0.2-1.0); Calcium 8.3 MG/DL (8.5-10.1); Osmolality,Calculated 299.8 MOS/KG (273-304)
[2020-01-14] MEDS ORDERED: SODIUM CHLORIDE 0.9% 1,000 ML IV STA (08:17)
[2020-01-14] MEDS ORDERED: ALBUTEROL 2.5 MG/3 ML NEB RESP TX PRN (08:46)
[2020-01-14] MEDS ORDERED: ONDANSETRON 4 MG/2 ML VIAL IV PRN (08:46)
[2020-01-14 08:55] LABS: ABG Base Excess -2.6 MMOL/L (-2.5-2.5); ABG HCO3 22.3 MMOL/L (20-26); ABG Oxygen Saturation 99.8 % (95-100); ABG PCO2 40.2 MM HG (35-48); ABG PH 7.358 (7.35-7.45); ABG TCO2 20.4 MMOL/L (23-27)
[2020-01-14] MEDS: PANTOPRAZOLE 40 MG VIAL IV SCH (10:21)
[2020-01-14] MEDS: ENOXAPARIN 30 MG/0.3 ML SYRINGE SUBCUT SCH (10:24)
[2020-01-14] MEDS ORDERED: VANCOMYCIN INJ 500 MG in SODIUM CHLORIDE 0.9% 100 ML IV PRN (11:00)
[2020-01-14 11:04] LABS: Ferritin 1102.5 ng/ml (8-252)
[2020-01-14] MEDS ORDERED: HEPARIN/NACL 0.9% 2 UNITS/ML 500 ML IV ONE (12:01)
[2020-01-14] MEDS ORDERED: VANCOMYCIN INJ 750 MG in SODIUM CHLORIDE 0.9% 250 ML IV ONE (13:00)
[2020-01-14] MEDS ORDERED: NOREPINEPHRINE 4 MG/4 ML VIAL IV ONE (13:03)
[2020-01-14] MEDS: NOREPINEPHRINE 8 MG in SODIUM CHLORIDE 0.9% 242 ML IV PRN (13:05)
[2020-01-14] MEDS ORDERED: SODIUM CHLORIDE 0.9% 1,000 ML IV ONE (13:24)
[2020-01-14 15:13] LABS: Apearance,Urine CLOUDY (Clear); Bilirubin,Urine Negative (Negative); Blood, Urine Negative (Negative); Glucose,Urine (UA) >=500 mg/dL (Negative); Ketones,Urine Negative (Negative); Mucus,Urine Occasional /LPF (Occasional); Nitrite,Urine Negative (Negative); Protein,Urine 30 MG/DL; RBC,Urine 226 /HPF (0-4); Urine Color Yellow (Yellow); Urine Specific Gravity 1.012 (1.001-1.035); Urine Urobilinogen < 2.0 EU/DL (0.2-1.0)
[2020-01-14] MEDS: INSULIN NPH/REGULAR 70/30 100 UNIT/ML SUBCUT SCH (17:00)
[2020-01-14] MEDS: INSULIN LISPRO 100 UNIT/ML SUBCUT SCH ×2 (17:00→21:18)
[2020-01-14] MEDS ORDERED: INSULIN LISPRO 100 UNIT/ML SUBCUT SCH (18:00)
[2020-01-14] MEDS: HYDROXYCHLOROQUINE 200 MG TABLET PO SCH (21:18)
[2020-01-14] MEDS: PIPERACILLIN/TAZOBACTAM 3,375 MG in SODIUM CHLORIDE 0.9% 100 ML IV SCH (22:38)
[2020-01-15] MEDS: NOREPINEPHRINE 8 MG in SODIUM CHLORIDE 0.9% 242 ML IV PRN (01:12)
[2020-01-15] MEDS: INSULIN LISPRO 100 UNIT/ML SUBCUT SCH ×6 (01:12→21:03)
[2020-01-15 04:49] LABS: ABG Base Excess -5.6 MMOL/L (-2.5-2.5); ABG HCO3 19.9 MMOL/L (20-26); ABG Oxygen Saturation 99.8 % (95-100); ABG PCO2 49.8 MM HG (35-48); ABG PH 7.261 (7.35-7.45)
[2020-01-15 05:12] LABS: Basophils % 0.1 % (0.0-0.8); Hematocrit 31.9 VOL% (35.7-47.0); Hemoglobin 10.2 GM/DL (12.0-16.0); Immature Granulocytes % 0.5 %; Immature Granulocytes Absolute 0.05 #; Lymphocytes # 0.3 10*3/uL (1.4-4.0); Lymphocytes % 2.8 % (21.3-54.2); Mean Corpuscular Volume 99.7 FL (87-102); Mean Platelet Volume 10.7 FL (9.6-12.0); Neutrophils % 92.6 % (38.7-73.9); Platelet Count 137 T/CUMM (130-400); Red Cell Distribution Width 13.5 % (9.3-17.3); White Blood Count 10.6 T/CUMM (4-12)
[2020-01-15 05:38] LABS: Band Neutrophils 8 % (0-10); Lymphocytes 2 % (20-55); Metamyelocytes 1 %; Segmented Neutrophils 85 % (50-85); Total Cells Counted 100
[2020-01-15 05:39] LABS: Hypochromasia Slight; Macrocytosis Slight; Polychromasia Slight
[2020-01-15 05:40] LABS: Platelet Estimate Adequate
[2020-01-15 05:44] LABS: Albumin 2.1 G/DL (3.4-5.0); Bilirubin,Total 0.8 MG/DL (0.2-1.0); Calcium 7.7 MG/DL (8.5-10.1); Osmolality,Calculated 310.6 MOS/KG (273-304); Risk Ratio 2.51; Total Protein 5.7 G/DL (6.4-8.3); VLDL CHOLESTEROL 23.6 MG/DL
[2020-01-15] MEDS: PIPERACILLIN/TAZOBACTAM 3,375 MG in SODIUM CHLORIDE 0.9% 100 ML IV SCH ×2 (08:35→21:17)
[2020-01-15] MEDS: INSULIN NPH/REGULAR 70/30 100 UNIT/ML SUBCUT SCH ×2 (08:40→16:50)
[2020-01-15] MEDS: HYDROXYCHLOROQUINE 200 MG TABLET PO SCH ×2 (08:40→21:03)
[2020-01-15] MEDS: ENOXAPARIN 30 MG/0.3 ML SYRINGE SUBCUT SCH (08:40)
[2020-01-15] MEDS: PANTOPRAZOLE 40 MG VIAL IV SCH (09:47)
[2020-01-15] MEDS ORDERED: VANCOMYCIN INJ 500 MG in SODIUM CHLORIDE 0.9% 100 ML IV ONE (10:00)
[2020-01-15 10:27] LABS: ABG Base Excess -4.6 MMOL/L (-2.5-2.5); ABG HCO3 20.6 MMOL/L (20-26); ABG Oxygen Saturation 99.5 % (95-100); ABG PCO2 45.5 MM HG (35-48); ABG PH 7.291 (7.35-7.45); ABG TCO2 20.1 MMOL/L (23-27)
[2020-01-16] MEDS: INSULIN LISPRO 100 UNIT/ML SUBCUT SCH ×4 (00:40→20:12)
[2020-01-16 05:03] LABS: Basophils % 0.2 % (0.0-0.8); Hematocrit 32.1 VOL% (35.7-47.0); Hemoglobin 10.4 GM/DL (12.0-16.0); Immature Granulocytes % 0.7 %; Immature Granulocytes Absolute 0.09 #; Lymphocytes # 0.3 10*3/uL (1.4-4.0); Lymphocytes % 2.1 % (21.3-54.2); Mean Corpuscular HGB Conc 32.4 GM/DL (32-36); Mean Corpuscular Volume 98.8 FL (87-102); Mean Platelet Volume 11.1 FL (9.6-12.0); Monocytes % 3.6 % (1.7-12.7); Neutrophils % 93.4 % (38.7-73.9); Platelet Count 134 T/CUMM (130-400); Red Blood Count 3.25 MC/CUMM (3.8-5.5); White Blood Count 13.2 T/CUMM (4-12)
[2020-01-16 05:12] LABS: ABG Base Excess -3.7 MMOL/L (-2.5-2.5); ABG HCO3 21.4 MMOL/L (20-26); ABG PCO2 44.2 MM HG (35-48); ABG PH 7.316 (7.35-7.45); ABG TCO2 19.9 MMOL/L (23-27)
[2020-01-16 05:24] LABS: Band Neutrophils 2 % (0-10); Lymphocytes 4 % (20-55); Segmented Neutrophils 90 % (50-85); Total Cells Counted 100
[2020-01-16 05:25] LABS: Hypochromasia 1+; Microcytosis Slight; Ovalocytes Slight
[2020-01-16] MEDS: PANTOPRAZOLE 40 MG VIAL IV SCH (10:30)
[2020-01-16] MEDS: ENOXAPARIN 30 MG/0.3 ML SYRINGE SUBCUT SCH (10:30)
[2020-01-16] MEDS: HYDROXYCHLOROQUINE 200 MG TABLET PO SCH ×2 (10:30→21:01)
[2020-01-16] MEDS: ZINC SULFATE 220 MG CAPSULE PO SCH (10:30)
[2020-01-16] MEDS: INSULIN NPH/REGULAR 70/30 100 UNIT/ML SUBCUT SCH ×3 (11:00→18:00)
[2020-01-16] MEDS: PIPERACILLIN/TAZOBACTAM 3,375 MG in SODIUM CHLORIDE 0.9% 100 ML IV SCH ×2 (14:30→21:01)
[2020-01-16] MEDS ORDERED: SODIUM CHLORIDE 0.9% 1,000 ML IV PRN (15:20)
[2020-01-16] MEDS ORDERED: DIGOXIN 0.5 MG/2 ML AMP IV ONE ×2 (18:45→19:45)
[2020-01-16] MEDS ORDERED: ACETAMINOPHEN 325 MG TABLET PO PRN (20:01)
[2020-01-16] MEDS: MIDAZOLAM 100 MG in SODIUM CHLORIDE 0.9% 80 ML IV PRN (22:50)
[2020-01-17] MEDS: INSULIN LISPRO 100 UNIT/ML SUBCUT SCH ×6 (00:49→20:26)
[2020-01-17] MEDS: NOREPINEPHRINE 8 MG in SODIUM CHLORIDE 0.9% 242 ML IV PRN (02:02)
[2020-01-17 04:46] LABS: ABG Base Excess -3.1 MMOL/L (-2.5-2.5); ABG HCO3 24.3 MMOL/L (20-26); ABG Oxygen Saturation 94.3 % (95-100); ABG PCO2 54.4 MM HG (35-48); ABG PH 7.267 (7.35-7.45); ABG PO2 81.9 MM HG (80-95); ABG TCO2 25.9 MMOL/L (23-27)
[2020-01-17 05:07] LABS: Basophils % 0.1 % (0.0-0.8); Eosinophils % 0.1 % (0.00-10.9); Hematocrit 33.1 VOL% (35.7-47.0); Hemoglobin 10.4 GM/DL (12.0-16.0); Immature Granulocytes Absolute 0.14 #; Lymphocytes # 0.8 10*3/uL (1.4-4.0); Lymphocytes % 5.6 % (21.3-54.2); Mean Corpuscular HGB Conc 31.4 GM/DL (32-36); Mean Corpuscular Volume 102.5 FL (87-102); Mean Platelet Volume 11.2 FL (9.6-12.0); Monocytes % 1.9 % (1.7-12.7); Neutrophils % 91.3 % (38.7-73.9); Platelet Count 116 T/CUMM (130-400); Red Blood Count 3.23 MC/CUMM (3.8-5.5); Red Cell Distribution Width 14.3 % (9.3-17.3); White Blood Count 13.4 T/CUMM (4-12)
[2020-01-17 05:31] LABS: Calcium 7.8 MG/DL (8.5-10.1); Osmolality,Calculated 312.3 MOS/KG (273-304)
[2020-01-17 05:34] LABS: Band Neutrophils 5 % (0-10); Hypochromasia 1+; Lymphocytes 4 % (20-55); Microcytosis Slight; Segmented Neutrophils 89 % (50-85); Total Cells Counted 100
[2020-01-17] MEDS: INSULIN NPH/REGULAR 70/30 100 UNIT/ML SUBCUT SCH ×2 (08:36→17:42)
[2020-01-17] MEDS: HYDROXYCHLOROQUINE 200 MG TABLET PO SCH ×2 (08:38→20:26)
[2020-01-17] MEDS: ENOXAPARIN 40 MG/0.4 ML SYRINGE SUBCUT SCH (08:38)
[2020-01-17] MEDS: PIPERACILLIN/TAZOBACTAM 3,375 MG in SODIUM CHLORIDE 0.9% 100 ML IV SCH ×2 (08:38→21:20)
[2020-01-17] MEDS: PANTOPRAZOLE 40 MG VIAL IV SCH (08:38)
[2020-01-17] MEDS ORDERED: GLUCAGON 1 MG VIAL IM PRN (08:49)
[2020-01-17 12:11] LABS: ABG Base Excess -2.4 MMOL/L (-2.5-2.5); ABG Oxygen Saturation 98.4 % (95-100); ABG PCO2 48.5 MM HG (35-48); ABG PH 7.312 (7.35-7.45); ABG PO2 147.1 MM HG (80-95); ABG TCO2 25.5 MMOL/L (23-27); Glucose Heart Surgery 186 MG/DL (74-106); Hemoglobin Heart Surgery 10.6 G/DL (12.0-16.0); Potassium Heart/CVR 3.6 MMOL/L (3.5-5.1)
[2020-01-17] MEDS ORDERED: MORPHINE 4 MG/1 ML VIAL IV ONE (17:06)
[2020-01-17] MEDS: MORPHINE 4 MG/1 ML VIAL IV PRN (17:43)
[2020-01-17] MEDS: MIDAZOLAM 100 MG in SODIUM CHLORIDE 0.9% 80 ML IV PRN (17:43)
[2020-01-17] MEDS: DEXTROSE 10% 250 ML BAG IV PRN (20:32)
[2020-01-18] MEDS: INSULIN LISPRO 100 UNIT/ML SUBCUT SCH ×5 (00:05→18:37)
[2020-01-18 04:57] LABS: ABG Base Excess -3.9 MMOL/L (-2.5-2.5); ABG HCO3 21.2 MMOL/L (20-26); ABG Oxygen Saturation 98.6 % (95-100); ABG PCO2 51.6 MM HG (35-48); ABG PH 7.266 (7.35-7.45); ABG TCO2 21.7 MMOL/L (23-27)
[2020-01-18 05:22] LABS: Basophils % 0.2 % (0.0-0.8); Eosinophils % 0.2 % (0.00-10.9); Hematocrit 31.8 VOL% (35.7-47.0); Immature Granulocytes % 0.7 %; Immature Granulocytes Absolute 0.09 #; Lymphocytes # 0.6 10*3/uL (1.4-4.0); Lymphocytes % 4.7 % (21.3-54.2); Mean Corpuscular HGB Conc 31.4 GM/DL (32-36); Mean Corpuscular Volume 101.3 FL (87-102); Mean Platelet Volume 11.7 FL (9.6-12.0); Monocytes % 2.9 % (1.7-12.7); Neutrophils % 91.3 % (38.7-73.9); Red Blood Count 3.14 MC/CUMM (3.8-5.5); Red Cell Distribution Width 14.3 % (9.3-17.3); White Blood Count 12.3 T/CUMM (4-12)
[2020-01-18 05:23] LABS: Platelet Count 91 T/CUMM (130-400)
[2020-01-18 05:37] LABS: Calcium 8.2 MG/DL (8.5-10.1); Osmolality,Calculated 305.4 MOS/KG (273-304)
[2020-01-18 05:50] LABS: Band Neutrophils 6 % (0-10); Hypochromasia Slight; Lymphocytes 2 % (20-55); Platelet Estimate Decreased; Segmented Neutrophils 91 % (50-85); Total Cells Counted 100
[2020-01-18 05:51] LABS: Microcytosis Slight
[2020-01-18] MEDS: ENOXAPARIN 40 MG/0.4 ML SYRINGE SUBCUT SCH (08:23)
[2020-01-18] MEDS: PANTOPRAZOLE 40 MG VIAL IV SCH (08:24)
[2020-01-18] MEDS: HYDROXYCHLOROQUINE 200 MG TABLET PO SCH ×2 (08:24→20:37)
[2020-01-18] MEDS: ZINC SULFATE 220 MG CAPSULE PO SCH (08:24)
[2020-01-18] MEDS: PIPERACILLIN/TAZOBACTAM 3,375 MG in SODIUM CHLORIDE 0.9% 100 ML IV SCH ×2 (08:30→20:37)
[2020-01-18] MEDS: NOREPINEPHRINE 8 MG in SODIUM CHLORIDE 0.9% 242 ML IV PRN (08:44)
[2020-01-18] MEDS: INSULIN NPH/REGULAR 70/30 100 UNIT/ML SUBCUT SCH ×2 (11:33→18:36)
[2020-01-18] MEDS: MORPHINE 4 MG/1 ML VIAL IV PRN ×2 (14:26→23:55)
[2020-01-18] MEDS: MIDAZOLAM 100 MG in SODIUM CHLORIDE 0.9% 80 ML IV PRN (18:43)
[2020-01-19] MEDS: INSULIN LISPRO 100 UNIT/ML SUBCUT SCH ×4 (00:05→17:52)
[2020-01-19 04:33] LABS: Basophils % 0.2 % (0.0-0.8); Eosinophils % 0.3 % (0.00-10.9); Hematocrit 28.9 VOL% (35.7-47.0); Hemoglobin 9.1 GM/DL (12.0-16.0); Immature Granulocytes % 1.4 %; Immature Granulocytes Absolute 0.13 #; Lymphocytes # 0.4 10*3/uL (1.4-4.0); Lymphocytes % 4.6 % (21.3-54.2); Mean Corpuscular HGB Conc 31.5 GM/DL (32-36); Mean Corpuscular Volume 100.7 FL (87-102); Mean Platelet Volume 11.7 FL (9.6-12.0); Monocytes % 4.1 % (1.7-12.7); Neutrophils % 89.4 % (38.7-73.9); Red Blood Count 2.87 MC/CUMM (3.8-5.5); Red Cell Distribution Width 14.4 % (9.3-17.3); White Blood Count 9.6 T/CUMM (4-12)
[2020-01-19 04:38] LABS: Platelet Count 87 T/CUMM (130-400)
[2020-01-19 04:48] LABS: ABG Base Excess -2.6 MMOL/L (-2.5-2.5); ABG HCO3 24.7 MMOL/L (20-26); ABG Oxygen Saturation 93.5 % (95-100); ABG PCO2 55.2 MM HG (35-48); ABG PH 7.268 (7.35-7.45); ABG PO2 74.3 MM HG (80-95); ABG TCO2 26.4 MMOL/L (23-27)
[2020-01-19 04:54] LABS: Band Neutrophils 6 % (0-10); Lymphocytes 3 % (20-55); Promyelocytes 1 %; Segmented Neutrophils 86 % (50-85); Total Cells Counted 100
[2020-01-19 04:55] LABS: Hypochromasia Slight; Microcytosis Slight; Platelet Estimate Decreased; Polychromasia Slight
[2020-01-19 05:07] LABS: Calcium 8.1 MG/DL (8.5-10.1); Osmolality,Calculated 309.3 MOS/KG (273-304)
[2020-01-19] MEDS: ENOXAPARIN 40 MG/0.4 ML SYRINGE SUBCUT SCH (08:24)
[2020-01-19] MEDS: HYDROXYCHLOROQUINE 200 MG TABLET PO SCH (08:24)
[2020-01-19] MEDS: PIPERACILLIN/TAZOBACTAM 3,375 MG in SODIUM CHLORIDE 0.9% 100 ML IV SCH ×2 (08:24→21:26)
[2020-01-19] MEDS: PANTOPRAZOLE 40 MG VIAL IV SCH (08:26)
[2020-01-19] MEDS: INSULIN NPH/REGULAR 70/30 100 UNIT/ML SUBCUT SCH ×2 (08:30→17:51)
[2020-01-19] MEDS: ENOXAPARIN 30 MG/0.3 ML SYRINGE SUBCUT SCH (12:21)
[2020-01-19] MEDS: methylPREDNISolone SOD SUC 40 MG/1 ML VIAL IV SCH ×2 (12:22→17:51)
[2020-01-19] MEDS: NOREPINEPHRINE 8 MG in SODIUM CHLORIDE 0.9% 242 ML IV PRN (16:01)
[2020-01-19] MEDS: MIDAZOLAM 100 MG in SODIUM CHLORIDE 0.9% 80 ML IV PRN (17:54)
[2020-01-19] MEDS: MORPHINE 4 MG/1 ML VIAL IV PRN (23:15)
[2020-01-20] MEDS: methylPREDNISolone SOD SUC 40 MG/1 ML VIAL IV SCH ×3 (01:50→17:02)
[2020-01-20] MEDS: INSULIN LISPRO 100 UNIT/ML SUBCUT SCH ×4 (02:57→18:08)
[2020-01-20 04:12] LABS: ABG Base Excess -8.4 MMOL/L (-2.5-2.5); ABG HCO3 17.6 MMOL/L (20-26); ABG Oxygen Saturation 98.8 % (95-100); ABG PCO2 54.5 MM HG (35-48); ABG TCO2 19.1 MMOL/L (23-27)
[2020-01-20 04:14] LABS: ABG PH 7.179 (7.35-7.45)
[2020-01-20 04:41] LABS: Basophils % 0.3 % (0.0-0.8); Hematocrit 30.4 VOL% (35.7-47.0); Hemoglobin 9.5 GM/DL (12.0-16.0); Immature Granulocytes % 0.7 %; Immature Granulocytes Absolute 0.02 #; Lymphocytes # 0.2 10*3/uL (1.4-4.0); Lymphocytes % 5.4 % (21.3-54.2); Mean Corpuscular HGB Conc 31.3 GM/DL (32-36); Mean Corpuscular Volume 102.7 FL (87-102); Mean Platelet Volume 12.8 FL (9.6-12.0); Monocytes % 2.7 % (1.7-12.7); Neutrophils % 90.9 % (38.7-73.9); Red Blood Count 2.96 MC/CUMM (3.8-5.5); Red Cell Distribution Width 14.6 % (9.3-17.3)
[2020-01-20 04:46] LABS: Platelet Count 77 T/CUMM (130-400)
[2020-01-20 04:53] LABS: Calcium 8.2 MG/DL (8.5-10.1); Osmolality,Calculated 318.3 MOS/KG (273-304)
[2020-01-20] MEDS ORDERED: SODIUM BICARBONATE 50 MEQ/50 ML VIAL IV ONE (05:30)
[2020-01-20 05:35] LABS: Band Neutrophils 1 % (0-10); Lymphocytes 5 % (20-55); Metamyelocytes 1 %; Platelet Estimate Decreased; Reactive Lymphocytes Few; Segmented Neutrophils 91 % (50-85); Total Cells Counted 100
[2020-01-20] MEDS: SODIUM BICARB INJ 50 MEQ in DEXTROSE 5% 1,000 ML IV SCH ×3 (05:52→18:30)
[2020-01-20] MEDS: INSULIN NPH/REGULAR 70/30 100 UNIT/ML SUBCUT SCH ×2 (07:51→17:01)
[2020-01-20] MEDS: PANTOPRAZOLE 40 MG VIAL IV SCH (08:04)
[2020-01-20] MEDS: ENOXAPARIN 30 MG/0.3 ML SYRINGE SUBCUT SCH (08:04)
[2020-01-20] MEDS: ZINC SULFATE 220 MG CAPSULE PO SCH (08:23)
[2020-01-20] MEDS: PIPERACILLIN/TAZOBACTAM 3,375 MG in SODIUM CHLORIDE 0.9% 100 ML IV SCH ×2 (08:24→20:55)
[2020-01-20] MEDS: MORPHINE 4 MG/1 ML VIAL IV PRN (16:58)
[2020-01-20] MEDS ORDERED: ATROPINE 1 MG/10 ML SYRINGE ONE (21:02)
[2020-01-21] MEDS: methylPREDNISolone SOD SUC 40 MG/1 ML VIAL IV SCH ×3 (00:31→17:15)
[2020-01-21] MEDS: INSULIN LISPRO 100 UNIT/ML SUBCUT SCH ×4 (00:31→18:13)
[2020-01-21] MEDS: SODIUM BICARB INJ 50 MEQ in DEXTROSE 5% 1,000 ML IV SCH (02:00)
[2020-01-21] MEDS: MORPHINE 4 MG/1 ML VIAL IV PRN (03:20)
[2020-01-21 03:51] LABS: Basophils % 0.3 % (0.0-0.8); Hematocrit 27.1 VOL% (35.7-47.0); Hemoglobin 8.7 GM/DL (12.0-16.0); Immature Granulocytes Absolute 0.04 #; Lymphocytes # 0.2 10*3/uL (1.4-4.0); Lymphocytes % 4.9 % (21.3-54.2); Mean Corpuscular HGB Conc 32.1 GM/DL (32-36); Mean Corpuscular Volume 99.3 FL (87-102); Monocytes % 4.4 % (1.7-12.7); NRBC # 0.02 10*3/uL; Neutrophils % 89.4 % (38.7-73.9); Red Blood Count 2.73 MC/CUMM (3.8-5.5); Red Cell Distribution Width 14.4 % (9.3-17.3); White Blood Count 3.9 T/CUMM (4-12)
[2020-01-21 04:01] LABS: ABG Base Excess -2.1 MMOL/L (-2.5-2.5); ABG HCO3 22.7 MMOL/L (20-26); ABG Oxygen Saturation 98.9 % (95-100); ABG PCO2 56.5 MM HG (35-48); ABG PH 7.262 (7.35-7.45)
[2020-01-21] MEDS: MIDAZOLAM 100 MG in SODIUM CHLORIDE 0.9% 80 ML IV PRN (04:08)
[2020-01-21 04:09] LABS: Platelet Count 77 T/CUMM (130-400)
[2020-01-21 04:20] LABS: Albumin 1.1 G/DL (3.4-5.0); Bilirubin,Total 0.8 MG/DL (0.2-1.0); Osmolality,Calculated 319.7 MOS/KG (273-304); Total Protein 4.9 G/DL (6.4-8.3)
[2020-01-21 04:32] LABS: Band Neutrophils 4 % (0-10); Lymphocytes 3 % (20-55); Metamyelocytes 2 %; Segmented Neutrophils 88 % (50-85); Total Cells Counted 100
[2020-01-21 04:33] LABS: Platelet Estimate Decreased
[2020-01-21 04:34] LABS: Burr Cells 1+; Hypochromasia 1+
[2020-01-21] MEDS: INSULIN NPH/REGULAR 70/30 100 UNIT/ML SUBCUT SCH ×2 (08:42→15:02)
[2020-01-21] MEDS: ENOXAPARIN 30 MG/0.3 ML SYRINGE SUBCUT SCH (08:43)
[2020-01-21] MEDS: PIPERACILLIN/TAZOBACTAM 3,375 MG in SODIUM CHLORIDE 0.9% 100 ML IV SCH (08:43)
[2020-01-21] MEDS: PANTOPRAZOLE 40 MG VIAL IV SCH (08:43)
[2020-01-21] MEDS ORDERED: POTASSIUM CHLORIDE RIDER 10 MEQ in PREMIX 1 EACH IV PRN (08:49)
[2020-01-21] MEDS: POTASSIUM CHLORIDE RIDER 20 MEQ in PREMIX 1 EACH IV PRN ×2 (09:00→11:00)
[2020-01-21] MEDS ORDERED: HEPARIN/NACL 0.9% 2 UNITS/ML 500 ML IV ONE (11:46)
[2020-01-21] MEDS: SODIUM CHLORIDE 23.4% CONC INJ 38.5 MEQ, SODIUM BICARB INJ 50 MEQ in STERILE WATER INJ ... IV SCH (12:16)
[2020-01-21] MEDS: DOPamine 800 MG/250 ML PREMIX IV PRN (12:19)
[2020-01-21] MEDS: ATORVASTATIN 40 MG TABLET PO SCH (22:53)
[2020-01-22] MEDS: methylPREDNISolone SOD SUC 40 MG/1 ML VIAL IV SCH ×3 (00:15→17:00)
[2020-01-22] MEDS: INSULIN LISPRO 100 UNIT/ML SUBCUT SCH ×4 (00:33→17:00)
[2020-01-22] MEDS: SODIUM CHLORIDE 23.4% CONC INJ 38.5 MEQ, SODIUM BICARB INJ 50 MEQ in STERILE WATER INJ ... IV SCH ×3 (00:33→21:17)
[2020-01-22 03:56] LABS: ABG Base Excess 1.1 MMOL/L (-2.5-2.5); ABG HCO3 25.4 MMOL/L (20-26); ABG PCO2 54.8 MM HG (35-48); ABG PH 7.317 (7.35-7.45); ABG PO2 81.5 MM HG (80-95); ABG TCO2 25.9 MMOL/L (23-27)
[2020-01-22 04:08] LABS: Basophils % 0.2 % (0.0-0.8); Hematocrit 30.7 VOL% (35.7-47.0); Hemoglobin 10.1 GM/DL (12.0-16.0); Immature Granulocytes % 1.3 %; Immature Granulocytes Absolute 0.11 #; Lymphocytes # 0.2 10*3/uL (1.4-4.0); Lymphocytes % 2.3 % (21.3-54.2); Mean Corpuscular HGB Conc 32.9 GM/DL (32-36); Mean Corpuscular Volume 96.8 FL (87-102); Mean Platelet Volume 12.4 FL (9.6-12.0); Monocytes % 4.3 % (1.7-12.7); NRBC # 0.08 10*3/uL; Neutrophils % 91.9 % (38.7-73.9); Red Blood Count 3.17 MC/CUMM (3.8-5.5); Red Cell Distribution Width 14.3 % (9.3-17.3); White Blood Count 8.3 T/CUMM (4-12)
[2020-01-22 04:16] LABS: Calcium 7.4 MG/DL (8.5-10.1)
[2020-01-22 04:20] LABS: Platelet Count 103 T/CUMM (130-400)
[2020-01-22 04:44] LABS: Band Neutrophils 1 % (0-10); Lymphocytes 2 % (20-55); Nucleated Red Blood Cells 1 (0-5); Platelet Estimate Decreased; Segmented Neutrophils 95 % (50-85); Total Cells Counted 100
[2020-01-22 04:45] LABS: Hypochromasia Slight; Microcytosis Slight; Ovalocytes Slight
[2020-01-22] MEDS: INSULIN NPH/REGULAR 70/30 100 UNIT/ML SUBCUT SCH ×2 (09:17→17:02)
[2020-01-22] MEDS: ENOXAPARIN 30 MG/0.3 ML SYRINGE SUBCUT SCH (09:25)
[2020-01-22] MEDS: PANTOPRAZOLE 40 MG VIAL IV SCH (09:26)
[2020-01-22] MEDS: MIDAZOLAM 100 MG in SODIUM CHLORIDE 0.9% 80 ML IV PRN (11:58)
[2020-01-22] MEDS: ATORVASTATIN 40 MG TABLET PO SCH (20:32)
[2020-01-23] MEDS: INSULIN LISPRO 100 UNIT/ML SUBCUT SCH ×4 (01:03→18:05)
[2020-01-23] MEDS: methylPREDNISolone SOD SUC 40 MG/1 ML VIAL IV SCH ×3 (01:38→16:30)
[2020-01-23 05:01] LABS: ABG Base Excess 4.9 MMOL/L (-2.5-2.5); ABG HCO3 30.3 MMOL/L (20-26); ABG Oxygen Saturation 96.7 % (95-100); ABG PCO2 48.3 MM HG (35-48); ABG PH 7.415 (7.35-7.45); ABG PO2 93.7 MM HG (80-95); ABG TCO2 31.8 MMOL/L (23-27)
[2020-01-23 05:12] LABS: Basophils # 0.1 10*3/uL (0.0-0.2); Basophils % 0.5 % (0.0-0.8); Hematocrit 30.8 VOL% (35.7-47.0); Hemoglobin 10.2 GM/DL (12.0-16.0); Immature Granulocytes % 1.7 %; Immature Granulocytes Absolute 0.23 #; Lymphocytes # 0.3 10*3/uL (1.4-4.0); Lymphocytes % 1.9 % (21.3-54.2); Mean Corpuscular HGB Conc 33.1 GM/DL (32-36); Mean Corpuscular Volume 93.3 FL (87-102); Mean Platelet Volume 13.2 FL (9.6-12.0); Monocytes % 3.3 % (1.7-12.7); NRBC # 0.12 10*3/uL; Neutrophils % 92.6 % (38.7-73.9); Platelet Count 107 T/CUMM (130-400); Red Cell Distribution Width 14.4 % (9.3-17.3); White Blood Count 13.5 T/CUMM (4-12)
[2020-01-23 05:23] LABS: Calcium 6.8 MG/DL (8.5-10.1)
[2020-01-23 05:35] LABS: Band Neutrophils 1 % (0-10); Hypochromasia Slight; Lymphocytes 5 % (20-55); Microcytosis Slight; Nucleated Red Blood Cells 2 (0-5); Polychromasia Slight; Segmented Neutrophils 85 % (50-85); Total Cells Counted 100
[2020-01-23 05:36] LABS: Platelet Estimate Decreased
[2020-01-23] MEDS: SODIUM CHLORIDE 23.4% CONC INJ 38.5 MEQ, SODIUM BICARB INJ 50 MEQ in STERILE WATER INJ ... IV SCH ×2 (08:14→18:07)
[2020-01-23] MEDS: METOCLOPRAMIDE 10 MG/10 ML UDCUP PO SCH ×3 (08:23→20:15)
[2020-01-23] MEDS: INSULIN NPH/REGULAR 70/30 100 UNIT/ML SUBCUT SCH ×2 (08:23→18:05)
[2020-01-23] MEDS: ENOXAPARIN 30 MG/0.3 ML SYRINGE SUBCUT SCH (08:23)
[2020-01-23] MEDS: PANTOPRAZOLE 40 MG VIAL IV SCH (08:25)
[2020-01-23] MEDS: MORPHINE 4 MG/1 ML VIAL IV PRN (11:57)
[2020-01-23] MEDS: MIDAZOLAM 100 MG in SODIUM CHLORIDE 0.9% 80 ML IV PRN (15:04)
[2020-01-23] MEDS ORDERED: HEPARIN/NACL 0.9% 2 UNITS/ML 500 ML IV ONE (15:06)
[2020-01-23] MEDS: DOPamine 800 MG/250 ML PREMIX IV PRN (15:17)
[2020-01-23] MEDS: HEPARIN/NACL 0.9% 2 UNITS/ML 500 ML IV SCH (15:25)
[2020-01-23] MEDS: HYDROmorphone INJ 50 MG in SODIUM CHLORIDE 0.9% 45 ML IV SCH (16:29)
[2020-01-23] MEDS: MENTHOL/ZINC OXIDE OINT 71 GM JAR TOP SCH (16:36)
[2020-01-23] MEDS: ATORVASTATIN 40 MG TABLET PO SCH (21:35)
[2020-01-24] MEDS: INSULIN LISPRO 100 UNIT/ML SUBCUT SCH ×4 (00:14→17:23)
[2020-01-24] MEDS: methylPREDNISolone SOD SUC 40 MG/1 ML VIAL IV SCH ×3 (00:26→17:04)
[2020-01-24] MEDS: METOCLOPRAMIDE 10 MG/10 ML UDCUP PO SCH ×4 (02:43→20:34)
[2020-01-24 04:37] LABS: Basophils % 0.3 % (0.0-0.8); Eosinophils % 0.1 % (0.00-10.9); Hemoglobin 9.9 GM/DL (12.0-16.0); Immature Granulocytes % 1.9 %; Immature Granulocytes Absolute 0.28 #; Lymphocytes # 0.4 10*3/uL (1.4-4.0); Lymphocytes % 2.6 % (21.3-54.2); Mean Corpuscular HGB Conc 31.9 GM/DL (32-36); Mean Corpuscular Volume 98.7 FL (87-102); Mean Platelet Volume 13.3 FL (9.6-12.0); Monocytes % 3.5 % (1.7-12.7); NRBC # 0.06 10*3/uL; Neutrophils % 91.6 % (38.7-73.9); Red Blood Count 3.14 MC/CUMM (3.8-5.5); Red Cell Distribution Width 14.5 % (9.3-17.3); White Blood Count 14.5 T/CUMM (4-12)
[2020-01-24 04:38] LABS: Platelet Count 108 T/CUMM (130-400)
[2020-01-24] MEDS: SODIUM CHLORIDE 23.4% CONC INJ 38.5 MEQ, SODIUM BICARB INJ 50 MEQ in STERILE WATER INJ ... IV SCH ×2 (04:46→15:28)
[2020-01-24 04:47] LABS: Calcium 6.3 MG/DL (8.5-10.1); Osmolality,Calculated 302.3 MOS/KG (273-304)
[2020-01-24 05:11] LABS: Band Neutrophils 2 % (0-10); Hypochromasia 1+; Lymphocytes 3 % (20-55); Platelet Estimate Decreased; Segmented Neutrophils 93 % (50-85); Total Cells Counted 100
[2020-01-24 05:12] LABS: Microcytosis Slight
[2020-01-24] MEDS: INSULIN NPH/REGULAR 70/30 100 UNIT/ML SUBCUT SCH ×2 (08:36→17:23)
[2020-01-24] MEDS: PANTOPRAZOLE 40 MG VIAL IV SCH (08:36)
[2020-01-24] MEDS: ENOXAPARIN 30 MG/0.3 ML SYRINGE SUBCUT SCH (08:37)
[2020-01-24 09:52] LABS: ABG Base Excess 7.3 MMOL/L (-2.5-2.5); ABG HCO3 31.1 MMOL/L (20-26); ABG Oxygen Saturation 97.6 % (95-100); ABG PCO2 51.5 MM HG (35-48); ABG PH 7.416 (7.35-7.45); ABG PO2 93.2 MM HG (80-95)
[2020-01-24] MEDS: HEPARIN/NACL 0.9% 2 UNITS/ML 500 ML IV SCH (17:05)
[2020-01-24] MEDS: HYDROmorphone INJ 50 MG in SODIUM CHLORIDE 0.9% 45 ML IV SCH (17:05)
[2020-01-24] MEDS: MORPHINE 4 MG/1 ML VIAL IV PRN (17:47)
[2020-01-24] MEDS ORDERED: NOREPINEPHRINE 4 MG/4 ML VIAL IV ONE (17:58)
[2020-01-24] MEDS: NOREPINEPHRINE 16 MG in SODIUM CHLORIDE 0.9% 234 ML IV PRN (18:00)
[2020-01-24] MEDS: ROCURONIUM 500 MG in SODIUM CHLORIDE 0.9% 500 ML IV PRN (18:27)
[2020-01-24] MEDS: ATORVASTATIN 40 MG TABLET PO SCH (20:36)
[2020-01-25] MEDS: INSULIN LISPRO 100 UNIT/ML SUBCUT SCH ×4 (00:21→18:40)
[2020-01-25] MEDS: methylPREDNISolone SOD SUC 40 MG/1 ML VIAL IV SCH ×3 (01:00→16:53)
[2020-01-25] MEDS: METOCLOPRAMIDE 10 MG/10 ML UDCUP PO SCH ×4 (02:35→21:50)
[2020-01-25] MEDS: SODIUM CHLORIDE 23.4% CONC INJ 38.5 MEQ, SODIUM BICARB INJ 50 MEQ in STERILE WATER INJ ... IV SCH ×3 (03:46→23:50)
[2020-01-25 04:04] LABS: Basophils # 0.1 10*3/uL (0.0-0.2); Basophils % 0.3 % (0.0-0.8); Eosinophils % 0.1 % (0.00-10.9); Hematocrit 28.2 VOL% (35.7-47.0); Hemoglobin 9.3 GM/DL (12.0-16.0); Immature Granulocytes % 3.8 %; Immature Granulocytes Absolute 0.98 #; Lymphocytes # 0.7 10*3/uL (1.4-4.0); Lymphocytes % 2.7 % (21.3-54.2); Mean Corpuscular Volume 97.2 FL (87-102); Mean Platelet Volume 13.1 FL (9.6-12.0); Monocytes % 2.2 % (1.7-12.7); NRBC # 0.19 10*3/uL; Neutrophils % 90.9 % (38.7-73.9); Platelet Count 118 T/CUMM (130-400); Red Cell Distribution Width 14.6 % (9.3-17.3); White Blood Count 26.1 T/CUMM (4-12)
[2020-01-25 04:29] LABS: Calcium 6.3 MG/DL (8.5-10.1); Osmolality,Calculated 291.7 MOS/KG (273-304)
[2020-01-25] MEDS: DEXTROSE 10% 250 ML BAG IV PRN (04:49)
[2020-01-25 04:52] LABS: Band Neutrophils 1 % (0-10); Lymphocytes 1 % (20-55); Nucleated Red Blood Cells 1 (0-5); Segmented Neutrophils 96 % (50-85); Total Cells Counted 100
[2020-01-25 04:53] LABS: Hypochromasia 1+; Microcytosis Slight
[2020-01-25] MEDS: DOPamine 800 MG/250 ML PREMIX IV PRN (08:40)
[2020-01-25] MEDS ORDERED: PHENYLEPHRINE DRIP 40 MG/250 ML PREMIX IV ONE (08:58)
[2020-01-25] MEDS ORDERED: SODIUM CHLORIDE 0.9% 1,000 ML IV ONE (09:01)
[2020-01-25] MEDS: MENTHOL/ZINC OXIDE OINT 71 GM JAR TOP SCH (09:15)
[2020-01-25] MEDS: PANTOPRAZOLE 40 MG VIAL IV SCH (09:20)
[2020-01-25 09:27] LABS: ABG Base Excess 7.2 MMOL/L (-2.5-2.5); ABG Oxygen Saturation 94.7 % (95-100); ABG PH 7.345 (7.35-7.45); ABG PO2 77.9 MM HG (80-95); ABG TCO2 31.9 MMOL/L (23-27)
[2020-01-25] MEDS: INSULIN NPH/REGULAR 70/30 100 UNIT/ML SUBCUT SCH ×2 (09:37→17:07)
[2020-01-25] MEDS: HEPARIN DRIP 25,000 UNITS/500 ML PREMIX IV SCH (09:38)
[2020-01-25] MEDS: HYDROCORTISONE 100 MG VIAL IV SCH ×2 (10:36→16:53)
[2020-01-25] MEDS: HEPARIN/NACL 0.9% 2 UNITS/ML 500 ML IV SCH (16:52)
[2020-01-25] MEDS: HYDROmorphone INJ 50 MG in SODIUM CHLORIDE 0.9% 45 ML IV SCH ×2 (17:01→21:20)
[2020-01-25] MEDS: ROCURONIUM 500 MG in SODIUM CHLORIDE 0.9% 500 ML IV PRN (18:42)
[2020-01-25] MEDS: NOREPINEPHRINE 16 MG in SODIUM CHLORIDE 0.9% 234 ML IV PRN (21:20)
[2020-01-25] MEDS: ATORVASTATIN 40 MG TABLET PO SCH (21:50)
[2020-01-26] MEDS: INSULIN LISPRO 100 UNIT/ML SUBCUT SCH ×2 (00:37→06:00)
[2020-01-26] MEDS: methylPREDNISolone SOD SUC 40 MG/1 ML VIAL IV SCH ×2 (00:40→08:13)
[2020-01-26] MEDS: HYDROCORTISONE 100 MG VIAL IV SCH ×2 (00:41→08:30)
[2020-01-26] MEDS: METOCLOPRAMIDE 10 MG/10 ML UDCUP PO SCH ×2 (02:00→08:12)
[2020-01-26 04:22] LABS: Basophils % 0.1 % (0.0-0.8); Hematocrit 21.7 VOL% (35.7-47.0); Immature Granulocytes Absolute 0.32 #; Lymphocytes # 0.3 10*3/uL (1.4-4.0); Lymphocytes % 1.7 % (21.3-54.2); Mean Corpuscular HGB Conc 32.3 GM/DL (32-36); Mean Corpuscular Volume 99.1 FL (87-102); Mean Platelet Volume 13.4 FL (9.6-12.0); Monocytes % 1.5 % (1.7-12.7); NRBC # 0.02 10*3/uL; Neutrophils % 94.7 % (38.7-73.9); Platelet Count 85 T/CUMM (130-400); Red Blood Count 2.19 MC/CUMM (3.8-5.5); Red Cell Distribution Width 14.4 % (9.3-17.3); White Blood Count 16.3 T/CUMM (4-12)
[2020-01-26 04:35] LABS: Osmolality,Calculated 303.7 MOS/KG (273-304)
[2020-01-26 04:38] LABS: Calcium 5.5 MG/DL (8.5-10.1)
[2020-01-26] MEDS ORDERED: CALCIUM GLUCONATE 2,000 MG in SODIUM CHLORIDE 0.9% 100 ML IV ONE (06:00)
[2020-01-26 07:55] LABS: Band Neutrophils 2 % (0-10); Lymphocytes 2 % (20-55); Nucleated Red Blood Cells 1 (0-5); Platelet Estimate Decreased; Segmented Neutrophils 96 % (50-85); Total Cells Counted 100
[2020-01-26 07:56] LABS: Polychromasia Slight; Smudge Cells Few
[2020-01-26] MEDS: INSULIN NPH/REGULAR 70/30 100 UNIT/ML SUBCUT SCH (08:12)
[2020-01-26] MEDS: PANTOPRAZOLE 40 MG VIAL IV SCH (08:13)
[2020-01-26] MEDS: HEPARIN DRIP 25,000 UNITS/500 ML PREMIX IV SCH (08:15)
[2020-01-26] MEDS ORDERED: SODIUM CHLORIDE 0.9% 1,000 ML IV PRN (08:53)
[2020-01-26 09:07] LABS: Basophils % 0.1 % (0.0-0.8); Immature Granulocytes % 2.7 %; Immature Granulocytes Absolute 0.59 #; Lymphocytes # 0.5 10*3/uL (1.4-4.0); Lymphocytes % 2.2 % (21.3-54.2); Mean Corpuscular HGB Conc 32.5 GM/DL (32-36); Mean Corpuscular Volume 99.4 FL (87-102); Mean Platelet Volume 13.3 FL (9.6-12.0); Monocytes % 1.5 % (1.7-12.7); NRBC # 0.06 10*3/uL; Neutrophils % 93.5 % (38.7-73.9); Platelet Count 96 T/CUMM (130-400); Red Blood Count 1.67 MC/CUMM (3.8-5.5); Red Cell Distribution Width 14.5 % (9.3-17.3); White Blood Count 21.8 T/CUMM (4-12)
[2020-01-26 09:10] LABS: Hemoglobin 5.4 GM/DL (12.0-16.0)
[2020-01-26 09:35] LABS: INR 1.1; PT Patient Result 11.9 SECS (9.8-11.9); Partial Thromboplastin Time 49.9 SECS (23.9-33.8)
[2020-01-26 10:13] VITALS: BP 130/82
[2020-01-26 10:46] LABS: ABG Base Excess 10.4 MMOL/L (-2.5-2.5); ABG HCO3 36.5 MMOL/L (20-26); ABG Oxygen Saturation 94.6 % (95-100); ABG PH 7.395 (7.35-7.45); ABG PO2 77.9 MM HG (80-95); ABG TCO2 38.4 MMOL/L (23-27); Allen Test Positive; Pt O2 Delivery Device Ventilator
[2020-01-26] MEDS ORDERED: MORPHINE 4 MG/1 ML VIAL IV PRN (11:32)
[2020-01-26] MEDS ORDERED: LORazepam 2 MG/1 ML VIAL IV PRN (11:32)
[2020-01-26 13:19] LABS: Hypochromasia 1+; Lymphocytes 2 % (20-55); Microcytosis 2+; Platelet Estimate Decreased; Segmented Neutrophils 97 % (50-85); Total Cells Counted 100
[2020-01-26] MEDS ORDERED: HYDROCORTISONE 100 MG VIAL IV SCH (16:30)
[2020-01-27 12:32] LABS: Hematocrit 16.6 VOL% (35.7-47.0)
== END 2020-01-26 13:12 | disposition expired | DRG 870 ==
LOC: EDBD → EDUNIT# → N.ED 06:49 → N.EDINP 08:46 → SUPCPDRO 08:46 → SUATTDRO 08:46 → N.ICU 09:34 → N.CC 01-23 20:03
PROVIDERS: ADMIT Internal Medicine; ATTEND Phlebology